=== PATIENT | female | born 1995 | race Caucasian/White ===

== ENCOUNTER 2017-06-07 11:06 | Emergency (ER) | payer OTHER ==
[~2017-06-07] VITALS: Wt 95.5 kg
--- NOTE | 2017-06-07 13:50 | ERA ---
ER Documentation Chief Complaint Date/Time DATE: 06/07/17 TIME: 13:47 Chief Complaint epistaxis causing cough, no active bleeding at this time HPI 22-year-old female presents with a chief complaint of epistaxis. Symptoms started this morning. Patient also woke up with a rash on her upper chest and arms bilaterally. Describes a rash as mildly pruritic. Has used hydrocortisone cream with mild relief of pruritus. Currently no pruritus. Patient has returned from [place] 1 day ago. Denies fever, recent illness, recent antibiotic use, symptomatic close contacts, diabetes, pruritus, pain, skin opening or bite. Patients vaccination status is up to date. Patient has no other complaints and describes no other associated manifestations. Nursing notes have been reviewed and are consistent with history given. ROS All systems reviewed and are negative except as per history of present illness. Medications Home Meds Active Scripts Hydrocortisone* Topical (Hydrocortisone* Topical) 2.5%-28.3 Gm Cream..g., 1 APPLIC TOP BID, #1 TUB Prov:ADI ORELLANA PA-C 06/07/17 Allergies Allergies: Coded Allergies: No Known Allergy (Unverified , 06/07/17) PMhx/Soc History of Surgery: Yes (Appendectomy) Anesthesia Reaction: No Hx Neurological Disorder: No Hx Respiratory Disorders: No Hx Cardiac Disorders: Yes (Tachycardia) Hx Psychiatric Problems: No Hx Miscellaneous Medical Probl: No Hx Alcohol Use: Yes Hx Substance Use: No Hx Tobacco Use: No Smoking Status: Never smoker Physical Exam Vitals Physical Exam Const: Healthy-appearing. Well-nourished. Well-developed. No acute distress. Skin: Nonblanching 1-2 mm macules spread diffusely over the upper chest and upper arms bilaterally. No petechiae or rashes. No ulcer, induration, jaundice. Good turgor. Ext: No cyanosis or edema noted. Head: Normocephalic. As noted in skin exam. Eyes: Non-injected; No scleral erythema, or discharge. EOMI and LOVE bilaterally. Ears: Normal External Ears, EACs clear, TM normal bilaterally without erythema. Nose: Normal nose without discharge, septal deviation, or sinus tenderness. Oral: No oral edema visualized. Mucous membranes moist and pink. Neck: No cervical lymphadenopathy, or masses. Trachea midline. Supple ~ No meningismus. Pulm: Good air movement in upper and lower respiratory tracts. No dyspnea, stridor, tripoding or drooling. Clear to auscultation bilaterally. Cardio: Regular rate and rhythm. No JVD grossly observed. Radial and posterior tibial pulses 2+ bilaterally. No cyanosis. Capillary refill less than 2 seconds. Abd: Soft, non tender, non distended. No guarding. Normal bowel sounds. MS: Normal motor strength, normal tone with gross examination. Back: No midline or flank tenderness. Neur: Neurovascularly intact bilaterally. Awake, alert and oriented x3. Results 24 hrs Laboratory Tests Test 06/07/17 13:50 06/07/17 14:35 White Blood Count 14.410^3/ul Red Blood Count 4.1410^6/ul Hemoglobin 12.4g/dl Hematocrit 36.8% Mean Corpuscular Volume 88.9fl Mean Corpuscular Hemoglobin 30.0pg Mean Corpuscular Hemoglobin Concent 33.7g/dl Red Cell Distribution Width 12.7% Platelet Count 69784^3/UL Mean Platelet Volume 10.8fl Neutrophils % 66.0% Lymphocytes % 20.8% Monocytes % 10.2% Eosinophils % 1.8% Basophils % 0.6% Nucleated Red Blood Cells % 0.0/100WBC Neutrophils # (Manual) 9.510^3/ul Lymphocytes # 3.010^3/ul Monocytes # 1.510^3/ul Eosinophils # 0.310^3/ul Basophils # 0.110^3/ul Nucleated Red Blood Cells # 0.010^3/ul Urine Color YELLOW Urine Clarity CLEAR Urine pH 6.0 Urine Specific [place] 1.012 Urine Ketones NEGATIVEmg/dL Urine Nitrite NEGATIVEmg/dL Urine Bilirubin NEGATIVEmg/dL Urine Urobilinogen NEGATIVEmg/dL Urine Leukocyte Esterase 1+Christine/ul Urine Microscopic RBC 4/HPF Urine Microscopic WBC 13/HPF Urine Squamous Epithelial Cells FEW/HPF Urine Bacteria FEW/HPF Urine Hemoglobin 3+mg/dL Urine Glucose NEGATIVEmg/dL Urine Total Protein NEGATIVEmg/dl Sodium Level 144mmol/L Potassium Level 3.6mmol/L Chloride Level 102mmol/L Carbon Dioxide Level 28mmol/L Anion Gap 18 Blood Urea Nitrogen 8mg/dl Creatinine 0.70mg/dl Glucose Level 86mg/dl Calcium Level 9.6mg/dl Prothrombin Time 13.0Sec Prothrombin Time Ratio 1.0 INR International Normalized Ratio 0.98 Activated Partial Thromboplast Time 28.4Sec Procedures/MDM Otherwise healthy 22-year-old female presenting with a chief complaint of epistaxis and rash starting this morning as described in history and physical examination. I presented the case to my attending Dr. Dover who evaluated the patient himself and suggested getting CBC, BMP, PT/PTT, urinalysis and urine . Results were as follows: BC: Leukocytosis. CMP: Anion gap 18. Urinalysis: Positive leukocytes, white blood cells. Most likely diagnosis is a rash due to unknown etiology, anterior nosebleed, and asymptomatic UTI. At this time of little suspicion, intracranial hemorrhage, meningitis, meningococcemia, Kawasaki's disease, or other serious bacterial infection. She will be advised to continue with hydrocortisone cream, and be given an saline washes for nasal. Patient has been instructed on how to stop anterior nosebleeds. Patient's vitals are stable and current condition is appropriate for discharge. I spoken with my attending Dr. Sorto agrees with assessment and plan. Patient will be discharged with discharge instructions and return precautions. Departure Diagnosis: Primary Impression: Epistaxis Additional Impression: Rash Condition: Stable Additional Instructions: Follow up with your PCP within the next 1-3 days for a more thorough evaluation and a possible referral to a specialist. Return the the emergency department immediately if symptoms worsen or change. If you have any questions regarding medications, ask your pharmacist or us before you leave. If any adverse reactions occur while taking your medications, discontinue the treatment and return to the emergency department immediately. Take your medications as directed, and complete the entire course of treatment. ADI ORELLANA PA-C Jun 07, 2017 13:50 reactions occur while taking your medications, discontinue the treatment and return to the emergency department immediately. Take your medications as directed, and complete the entire course of treatment. ADI ORELLANA PA-C Jun 07, 2017 13:50
[2017-06-07 14:25] LABS: BASOPHIL # 0.1 10^3/ul (0.0-0.1); BASOPHILS % 0.6 % (0.0-2.0); EOSINOPHILS # 0.3 10^3/ul (0.0-0.5); EOSINOPHILS % 1.8 % (0.0-7.0); HEMATOCRIT 36.8 % (37.0-47.0); HEMOGLOBIN 12.4 g/dl (12.0-16.0); LYMPHOCYTES % 20.8 % (15.0-51.0); MEAN CORPUSCULAR HGB CONC 33.7 g/dl (32.0-37.0); MEAN CORPUSCULAR VOLUME 88.9 fl (82.0-101.0); MEAN PLATELET VOLUME 10.8 fl (7.4-10.4); MONOCYTE # 1.5 10^3/ul (0.3-0.9); MONOCYTES % 10.2 % (0.0-11.0); PLATELET COUNT 231 10^3/UL (140-415); RED BLOOD COUNT 4.14 10^6/ul (4.20-5.40); RED CELL DISTRIBUTION WIDTH 12.7 % (11.5-14.5); WHITE BLOOD COUNT 14.4 10^3/ul (4.8-10.8)
[2017-06-07 14:46] LABS: ADD UMIC YES; CALCIUM 9.6 mg/dl (8.4-10.2); CREATININE 0.7 mg/dl (0.44-1.00); POTASSIUM 3.6 mmol/L (3.5-5.1); UR ASCORBIC ACID NEGATIVE (NEGATIVE); UR BACTERIA FEW /HPF (NONE SEEN); UR BILIRUBIN (Dip) NEGATIVE (NEGATIVE); UR BLOOD (Dip) 3+ mg/dL (NEGATIVE); UR CLARITY CLEAR (CLEAR); UR COLOR YELLOW (YELLOW); UR GLUCOSE (Dip) NEGATIVE (NEGATIVE); UR KETONES (Dip) NEGATIVE (NEGATIVE); UR LEUKOCYTE ESTERASE (Dip) 1+ Leu/ul (NEGATIVE); UR NITRITE (Dip) NEGATIVE (NEGATIVE); UR RBC 4 /HPF (0-5); UR SPECIFIC GRAVITY (Dip) 1.012 (1.003-1.030); UR SQUAMOUS EPITHELIAL CELL FEW /HPF (FEW); UR TOTAL PROTEIN (Dip) NEGATIVE (NEGATIVE); UR UROBILINOGEN (Dip) NEGATIVE (NEGATIVE)
[2017-06-07 15:20] LABS: INR 0.98
[2017-06-07 15:21] LABS: PARTIAL THROMBOPLASTIN TIME 28.4 Sec (25.0-35.0)
[2017-06-07] MEDS ORDERED: HC30CR25 TOP (15:37)
[2017-06-07 15:44] VITALS: BP 126/74; PULSE 64; RESP 20; TEMP 98.3
== END 2017-06-07 15:46 | disposition home or self-care (01) ==
LOC: FTE 11:06
DX: R04.0 Epistaxis (principal); R21 Rash and other nonspecific skin eruption
CPT/HCPCS: 36415; 80048; 81001; 85025; 85610; 85730; Z7502; 99283